=== PATIENT | female | born 1965 | race Caucasian/White ===

== ENCOUNTER 2021-02-06 19:32 | Emergency (ER) | payer OTHER ==
[~2021-02-06] VITALS: Ht 157.5 cm; Wt 98.9 kg
--- NOTE | 2021-02-06 19:32 | NUR ---
SPOKE TO PATIENT ABOUT MEDICATIONS CONTRAINDICATED IN . PATIENT DENIES AND CONSENTS TO MEDICATIONS.
[2021-02-06 19:40] VITALS: BP 169/104
--- NOTE | 2021-02-06 19:40 | NUR ---
TO BED , BROUGHT IN BY AMBULANCE WITH C/O HEADACHE FOR A WEEK
--- NOTE | 2021-02-06 19:40 | NUR ---
56 YO/F BIBA W CO HEADACHE ON L SIDE RADIATING TO L SIDE OF NECK X1 WEEK THAT WORSENED TODAY TO 10/10 (SHARP AND THROBBING) AND HIGHBLOOD PRESSURE. PATIENT REPORTS SHE HAD A CT LAST WEEK AND WAS TOLD SHE HAD A SINUS INFECTION AND PLACED ON AMOXICILLIN. PATIENT DENIES FEVER V,D. PATIENT DENIES LOC, VISSION PROBLEMS. PATIENT AOX4, PERRL. PATIENT LAYING IN BED LOCKED IN LOWEST POSITION, BREATHING EVEN AND UNLABORED, NAD NOTED, WILL CONTINUE TO MONITOR. AT BEDSIDE. PMH:DENIES (REPORTS HER BP HAS BEEN HIGH THIS PAST WEEK) ALLERGIES: CIPRO
--- NOTE | 2021-02-06 19:46 | NUR ---
PT BROUGHT TO BED 2 VIA [facility]ENE
[2021-02-06] MEDS ORDERED: diphenhydrAMINE 50 MG/ML VIAL IVP ONE (20:15)
[2021-02-06] MEDS ORDERED: PROCHLORPERAZINE 10 MG/2 ML VIAL IVP ONE (20:15)
[2021-02-06] MEDS ORDERED: SUMAtriptan succinate 25 MG TAB PO ONE (20:15)
[2021-02-06] MEDS ORDERED: KETOROLAC 30 MG/ML VIAL IVP ONE (20:15)
[2021-02-06 20:58] LABS: ANION GAP 10.9 (8-16); CARBON DIOXIDE 28.7 mmol/L (21-32); CREATININE 0.9 mg/dL (0.6-1.3); POTASSIUM 3.6 mmol/L (3.5-5.1)
--- NOTE | 2021-02-06 21:22 | NUR ---
Patient's blood pressure elevated at 212/99, ERMD made aware, new orders to be placed for BP.
[2021-02-06] MEDS ORDERED: hydrALAZINE 20 MG/ML VIAL IVP ONE (21:55)
--- NOTE | 2021-02-06 22:00 | NUR ---
PATIENT DENIES ANY PAIN AT THIS TIME.
--- NOTE | 2021-02-06 23:00 | NUR ---
PER CT PERSONELL, PATIENT IV DID NOT FLUSH, ERMD STARTED NEW LINE TO R AC WHICH INFILTRATED W CONTRAST IN ARM. REMOVED R AC IV, APPLIED WARM COMPRESS TO R ARM PER ERMD. FLUSHED L AC IV, L AC IV INTACT AND FLUSHING WELL.
[2021-02-06] MEDS ORDERED: IMI25 PO (23:16)
--- NOTE | 2021-02-07 00:30 | NUR ---
PATIENT LAYING IN BED W EYES CLOSED LOCKED IN LOWEST POSITION, X1 SIDE RAIL UP, BREATHING EVEN AND UNLABORED. PATIENT CONNECTED TO MONITOR W VSS. NAD NOTED, WILL CONTINUE TO MONITOR. AT BEDSIDE.
--- NOTE | 2021-02-07 01:03 | NUR ---
RE-APPLIED NEW WARM COMPRESS TO PATIENT R ARM.
--- NOTE | 2021-02-07 01:55 | NUR ---
SAMPLE COLLECTED FROM PATIENT NARES AND HANDED TO DUGLAS FROM LAB.
--- NOTE | 2021-02-07 03:02 | NUR ---
RE-APPLIED WARM COMPRESS TO PATIENT R ARM. PATIENT DENIES ANY PAIN. RED BRUISE NOTE TO R ARM.
--- NOTE | 2021-02-07 03:10 | NUR ---
PATIENT TAKEN TO CT VIA WHEEL CHAIR.
--- NOTE | 2021-02-07 03:22 | NUR ---
PATIENT RETURNED FROM CT AND AMBULATED TO BATHROOM W STEADY GAIT.
--- NOTE | 2021-02-07 05:46 | NUR ---
patient laying in bed w eyes closed, breathing even and unlabored, bed locked in lowest position x1 siderail up. VSS. NAD noted, will continue to monitor.
[2021-02-07 07:23] VITALS: BP 152/71
--- NOTE | 2021-02-07 07:23 | NUR ---
Patient discharged with v/s stable. Written and verbal after care instructions given and explained. Patient alert, oriented and verbalized understanding of instructions. Ambulatory with steady gait. All questions addressed prior to discharge. ID band removed. Patient advised to follow up with PMD. Rx of SUMATRIPTAN given. Patient educated on indication of medication including possible reaction and side effects. Opportunity to ask questions provided and answered.
== END 2021-02-07 07:23 | disposition home or self-care (01) ==
LOC: MED 19:32
DX: G44.209 Tension-type headache, unspecified, not intractable (principal); Z20.822 Contact with and (suspected) exposure to COVID-19; G43.909 Migraine, unspecified, not intractable, without status migrainosus; R03.0 Elevated blood-pressure reading, without diagnosis of hypertension; Z88.1 Allergy status to other antibiotic agents
CPT/HCPCS: 36415; 70450; 70496; 70498; 80048; 87426; 96374; 96375; 99285; J0360; J0780; J1200; J1885; Q9967